=== PATIENT | female | born 1945 | race Caucasian/White ===

== ENCOUNTER → 2020-06-13 | Outpatient (CLI) | payer MEDICARE ==
[~2020-06-13] MED LIST: AMIT50 PO; ASPI81EC; ASPI81EC PO; ATEN50; BACL10; CYAN1000 PO; CYCL10 PO; DIAZ10 PO; ERGO400 PO; FISH1000 PO; FOLI1 PO; FOLI400; GABA300 PO; HYDACE10B; HYDACE10B PO; LEVSOD112 PO; LEVSOD150; LISI20 PO; METCAR750 PO; METF500C PO; NORT25 PO; OXYACE5T PO; OXYACE7.5T; PIRO20; PRAV20 PO; RANI150 PO; ROPI1; ROSU10TA; SERT100 PO; SIMV40 PO; VENL75ER PO; [UNRECOGNIZED DRUG - OTHER]
== END | disposition home or self-care (01) ==
LOC: PLD 14:27 → LAB SHORT 14:27
DX: C44.722 Squamous cell carcinoma of skin of right lower limb, including hip (principal)
CPT/HCPCS: 88305

== ENCOUNTER 2025-07-21 08:42 | Day surgery (SDC) | payer OTHER ==
[~2025-07-21] VITALS: Ht 165.1 cm; Wt 68.5 kg
[~2025-07-21 08:42] MED LIST changes: +AMLO5 PO; +ASPI81CH PO; +CHOLESTYRAMI239.4 G1 PO; +EPIPEN0.3 MG/0.3 IM; +EZET10 PO; +LASIX20 M2 PO; -LEVSOD112 PO; +LEVSOD137 PO; +TELM80 PO
[2025-07-21] MEDS ORDERED: ASPI325 PO (10:03)
[2025-07-21 10:16] VITALS: BP 178/81
--- NOTE | 2025-07-21 10:29 | NUR ---
Ambulatory in Day Surgery. History, Chart, Medications and Allergies reviewed before start of procedure. Patient confirms NPO status and agrees with scheduled surgery. Pre-Op teaching done. Pt verbalizes understanding. Patient States Post-Procedure ride home has been arranged.
--- NOTE | 2025-07-21 11:05 | NUR ---
07/21/25 1105 Kath Olson CONFIRMED AND REVIEWED H&P, MEDCICATIONS, ALLERGIES, MEDICAL HISTORY, RESPIRATORY HISTORY, VITAL SIGNS, 3-LEAD EKG, CONSENTS, AND PHYSICIAN ORDERS. PATIENT CONFIRMS NPO STATUS AND AGREES WITH SCHEDULED PROCEDURE. MONITOR INTACT WITH CONTINUOUS PULSE OXIMETRY, CAPNOGRAPHY, 3-LEAD EKG, INTERMITTENT BP. SUPPLEMENTAL O2 TO BE TITRATED THROUGHOUT PROCEDURE TO MAINTAIN O2 SATURATION ABOVE 90%. PATIENT DETERMINED TO BE ASA APPROPRIATE FOR PROPOFOL SEDATION PRIOR TO START OF PROCEDURE BY DR. QUINTANA
--- NOTE | 2025-07-21 12:12 | NUR ---
1130 pt with afib and bradicardia HR DROPPING TO [address] QUINTANA REQUEST ANESTHESIA CONSULT. DR LEMA EVALUATED PT. DR LEMA AND DR QUINTANA REC CANCEL PROCEDURE AND PT TO SEE PRIMARY DOC FOR CARDIAC WORKUP. PT IN AGREEMENT.
== END 2025-07-21 23:00 | disposition home or self-care (01) ==
LOC: ORSCMMR 08:42 → ORD 11:00 → ORSCMMR 11:00
DX: R19.4 Change in bowel habit (principal); Z53.9 Procedure and treatment not carried out, unspecified reason; R19.7 Diarrhea, unspecified; K92.1 Melena
CPT/HCPCS: 82947; J2704; J7120